=== PATIENT | female | born 1990 | race Caucasian/White ===

== ENCOUNTER 2023-10-07 14:02 | Outpatient (AMB) | payer OTHER, SELFPAY ==
--- NOTE | 2023-10-07 14:08 | HO.SPINEOV ---
Intake Intake Visit Reasons: back pain and instability walking Intake Note: Ms. 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 Mu is a pleasant 33-year-old who comes in today with a chief complaint of weakness in her arms and legs, with associated body fatigue. She reports that since 2020 she gradually began having difficulty walking and began experiencing muscle spasms which slowly began to limit her activities of daily living. She reports no known inciting incident. She states that she was once very active; playing rugby and going for hikes/walks daily. She is now to the point where even minimal exertions can trigger fatigue and weakness in her bilateral upper and lower extremities. She now ambulates with an antalgic gait and utilizes a cane to help brace herself while walking. She is tried many [id number] remedies with only minimal relief of her symptoms. 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 She denies any significant back pain or shooting pains into her upper or lower extremities. Denies numbness or tingling. PMH: POTS, EDS, MCAS, gastroparesis, small fiber neuropathy, IBS, chronic fatigue. Social hx: Patient does not smoke, reports no substance use. Medications: Escitalopram, Cromolyn, dextroamphetamine, famotidine, propanolol, pyridostigmine, sodium chloride, testosterone, trazodone, albuterol. Allergies: Concerta Physical exam: The patient has 5/5 strength in her upper and lower extremities. Her sensation is grossly intact. Her reflexes are 3+ hyperactive, likely confounded by SSRI use. She is able to rise from seated position without much difficulty, however she ambulates with a cane and has a slightly antalgic gait. (-) Howell's, (-) clonus, (-) straight leg raise. Imaging review: MRI of the lumbar, cervical & thoracic spine completed at [facility] show no obvious abnormalities. There is no significant nerve root impingement or central canal stenosis on any of her spine films. Impression: Mu is a pleasant 33-year-old who comes in today with a chief complaint of insidious onset diffuse weakness in her arms and legs with associated body fatigue. She reports no inciting incident for the symptoms, but states they are gradually worsening. She is gone from a very active lifestyle to a nearly sedentary one. Her cervical, thoracic, and lumbar MRI imaging appear normal with no obvious central canal or foraminal stenosis noted. There are no significant disc herniations, no obvious need for a neurosurgical intervention. It is difficult to pinpoint a diagnosis that may be causing her symptoms, however I believe follow-up with her PCP / assembly department supervisor / neurologist and discussion / exclusion of potential differentials such as polymyalgia rheumatica and amyotrophic lateral sclerosis would be a good place to start, if these have not already been ruled out. Thank you for allowing us to care for your patient. The total time spent with this visit with this patient was 45 minutes reviewing history, physical exam, MRI imaging review, and implementation of treatment plan or further diagnostic testing Roe Manning MD,PhD [facility] Coding Level of Care Code New Pt Level 4 (29788) Diagnoses Fatigue R53.83
== END 2023-10-07 14:48 | disposition home or self-care (01) ==
PROVIDERS: PCP Physician Assistant Medical; Visit Provider Neurological Surgery
DX: R53.83 Other fatigue (principal)
CPT/HCPCS: 99204

== ENCOUNTER → 2023-10-07 14:02 | Outpatient (BNVA) | payer OTHER, SELFPAY | PROVIDERS: PCP Physician Assistant Medical; Visit Provider Neurological Surgery ==